=== PATIENT | female | born 1990 | race Caucasian/White ===

== ENCOUNTER 2021-12-09 22:04 | Emergency (ER) | payer SELFPAY ==
[~2021-12-09] VITALS: Ht 170.2 cm; Wt 61.7 kg
[2021-12-09 22:18] VITALS: BP 120/90
--- NOTE | 2021-12-09 22:22 | NUR ---
TO LOBBY A/W BED AMBULATORY
--- NOTE | 2021-12-09 23:00 | NUR ---
seen and examined by santo
[2021-12-09 23:20] VITALS: BP 120/90
--- NOTE | 2021-12-09 23:20 | NUR ---
Patient discharged with v/s stable. Written and verbal after care instructions given and explained. Patient verbalized understanding. Ambulatory with steady gait. All questions addressed prior to discharge. Advised to follow up with PMD.
== END 2021-12-09 23:20 | disposition home or self-care (01) ==
LOC: MED 22:04
DX: R20.2 Paresthesia of skin (principal); R20.0 Anesthesia of skin; G43.909 Migraine, unspecified, not intractable, without status migrainosus
CPT/HCPCS: 99281